=== PATIENT | female | born 1995 | race Caucasian/White ===

== ENCOUNTER 2019-10-05 13:10 | Emergency (ER) | payer SELFPAY ==
--- NOTE | 2019-10-05 14:16 | EDM.PDOC ---
ED HPI GENERAL MEDICAL PROBLEM - General Chief Complaint: Chest Pain Stated Complaint: CHEST PAIN Time Seen by Provider: 10/05/19 14:15 - History of Present Illness INITIAL COMMENTS - FREE TEXT/NARRATIVE: 24-year-old female presents to the emergency room with chest pain. This pain has been present for the last couple of days. The patient has tried ibuprofen 800 mg once daily for the last couple of days and has not noticed significant improvement with this. The pain is worsened by changing positions especially reaching her hands up over her head and pain is very reproducible. Palpation over the tender areas also makes the pain worse. The patient does not have any breathing difficulty shortness of breath no leg or calf discomfort Treatments CLINICAL DERMATOLOGIST: Reports: NSAIDS, Other (see below) Other Treatments CLINICAL DERMATOLOGIST: IBU - no effect Chest Pain Score (Numeric/FACES): 6 - Related Data Allergies Allergy/AdvReac Type Severity Reaction Status Date / Time Penicillins Allergy Hives Verified 10/05/19 13:25 Home Meds: Home Meds Naproxen [Naprosyn] 500 mg PO Q12HR #20 tab 10/05/19 [Rx] medroxyPROGESTERone Acetate [Depo-Provera] 150 mg INJECT ASDIRECTED 10/05/19 [ History] Past Medical History Neurological History: Reports: Migraines Psychiatric History: Reports: Anxiety, Depression, Panic Attack - Past Surgical History HEENT Surgical History: Reports: Other (See Below) Other HEENT Surgeries/Procedures: Lumbar puncture - sudo tumor - drain fluid Neurological Surgical History: Reports: Other (See Below) Other Neurological Surgeries/Procedures: Lumbarpuncture Social & Family History - Tobacco Use Smoking Status *Q: Former Smoker Used Tobacco, but Quit: Yes Month/Year Tobacco Last Used: 2015 Second Hand Smoke Exposure: Yes - Caffeine Use Caffeine Use: Reports: Soda - Recreational Drug Use Recreational Drug Use: No ED ROS GENERAL - Review of Systems Review Of Systems: See Below Constitutional: Reports: No Symptoms HEENT: Reports: No Symptoms Respiratory: Reports: Pleuritic Chest Pain. Denies: Shortness of Breath, Wheezing, Cough, Sputum Cardiovascular: Reports: Chest Pain (Chest wall pain) Endocrine: Reports: No Symptoms GI/Abdominal: Reports: No Symptoms : Reports: No Symptoms Musculoskeletal: Reports: No Symptoms Skin: Reports: No Symptoms Neurological: Reports: No Symptoms Psychiatric: Reports: No Symptoms ED EXAM, GENERAL - Physical Exam Exam: See Below Exam Limited By: No Limitations General Appearance: Alert, No Apparent Distress Head: Atraumatic, Normocephalic Neck: Normal Inspection, Supple, Non-Tender, Full Range of Motion. No: Lymphadenopathy (L), Lymphadenopathy (R) Respiratory/Chest: No Respiratory Distress, Lungs Clear, Normal Breath Sounds, Other (Palpation chest wall elicits the same pain that brought the patient in) Cardiovascular: Regular Rate, Rhythm, No Edema, No Murmur GI/Abdominal: Normal Bowel Sounds, Soft, Non-Tender, Other (Significant obesity) Course - Vital Signs Last Recorded V/S: Last Vital Signs Temp 36.6 C 10/05/19 13:19 Pulse 80 10/05/19 13:19 Resp 16 10/05/19 13:19 BP 138/63 10/05/19 13:19 Pulse Ox 100 10/05/19 13:19 - Re-Assessments/Exams Free Text/Narrative Re-Assessment/Exam: 10/05/19 14:55 Discussed my findings and further evaluation the patient she declined EKG and chest x-ray. We'll go and treat with Naprosyn 500 mg twice a day and recommend she start Pepcid 20 mg twice daily as she has intermittent heartburn. Departure - Departure Time of Disposition: 14:59 Disposition: Home, Self-Care 01 Clinical Impression: Acute chest wall pain Prescriptions: Naproxen [Naprosyn] 500 mg PO Q12HR #20 tab Referrals: PCP,Not In Area [Primary Care Provider] - Forms: ED Department Discharge Additional Instructions: Return to the emergency room with any questions problems or worsening symptoms.. Start the Naprosyn one twice daily with meals Take famotidine 20 mg, this is the generic for Pepcid, take one twice daily Sepsis Event Note - Evaluation Sepsis Screening Result: No Definite Risk - Focused Exam Vital Signs: Vital Signs Temp Pulse Resp BP Pulse Ox 10/05/19 13:19 36.6 C 80 16 138/63 100 Date Exam was Performed: 10/05/19 Time Exam was Performed: 14:42
== END 2019-10-05 15:40 | disposition home or self-care (01) ==
LOC: JD.ED 13:10
DX: R07.81 Pleurodynia (principal); Z88.0 Allergy status to penicillin
CPT/HCPCS: 99283; 99284